=== PATIENT | male | born 1925 | race Caucasian/White ===

== ENCOUNTER 2016-09-01 07:57 | Outpatient (CLI) | payer MEDICARE, BC, OTHER | END 2016-09-01 07:58 | disposition home or self-care (01) | DX: E78.2 Mixed hyperlipidemia (principal); Z79.899 Other long term (current) drug therapy ==

== ENCOUNTER 2016-09-22 10:25 | Outpatient (CLI) | payer MEDICARE, BC, OTHER | END 2016-09-22 10:26 | disposition home or self-care (01) | DX: R41.2 Retrograde amnesia (principal) ==

== ENCOUNTER 2016-09-29 07:38 | Outpatient (CLI) | payer MEDICARE, BC, OTHER ==
[2016-09-29] MEDS ORDERED: GADOBUTROL 7.5 MMOL/7.5 ML VIAL IVP ONE (08:38)
== END 2016-09-29 07:39 | disposition home or self-care (01) ==
DX: R41.2 Retrograde amnesia (principal)
CPT/HCPCS: 70553; A9585

== ENCOUNTER 2017-01-16 10:04 | Emergency (ER) | payer MEDICARE, BC, OTHER ==
[2017-01-16 10:15] VITALS: BP 150/70
--- NOTE | 2017-01-16 10:54 | ED Physician Documentation ---
History of Present Illness - Stated complaint Stated Complaint: S/P R HAND ASPIRATION SWELLING - Chief complaint Chief Complaint: Ext Problem - History obtained from History obtained from: Patient, Family - History of Present Illness Timing: Yesterday - Additonal information Additional information: 89-year-old male had a procedure on the back of his hand to evaluate a lump over the top of his hand. Apparently a small amount of white substance was evacuated with a needle from the dorsum of the hand from a mass that was firm. 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 Since that time yesterday patient developed redness to the dorsum of the hand with swelling up to the midportion of the forearm. He awoke this morning with some improvement in this swelling and redness. Review of Systems Constitutional: denies: Fever, Chills Eyes: denies: Decreased vision Ears: denies: Ear pain Nose: denies: Congestion Respiratory: denies: Cough GI: denies: Vomiting : denies: Dysuria Skin: reports: Rash Musculoskeletal: reports: Extremity pain. denies: Neck pain, Back pain PD PAST MEDICAL HISTORY - Past Medical History Cardiovascular: Hypertension, High cholesterol Respiratory: COPD, Pneumonia Neuro: TIA Endocrine/Autoimmune: None GI: None : None HEENT: None Psych: None Musculoskeletal: Osteoarthritis Derm: Other - Past Surgical History Past Surgical History: Yes Ortho: Knee replacement, Rotator cuff repair HEENT: Cataracts Derm: Skin cancer surgery - Present Medications Home Medications: Ambulatory Orders Medication Instructions Recorded Confirmed Aspirin [Aspir 81] 81 mg PO DAILY 02/26/13 01/16/17 Clopidogrel [Plavix] 75 mg PO DAILY 02/26/13 01/16/17 Pravastatin Sodium [Pravachol] 40 mg PO HS 02/26/13 01/16/17 Fluticasone/Salmeterol 500/50 1 puffs IH BID 05/26/14 01/16/17 [Advair 500 Mcg/50 Mcg] Tiotropium [place] [Spiriva] 1 puffs IH DAILY 05/26/14 01/16/17 Azithromycin 500 mg PO ONCE 09/04/14 01/16/17 Calcium Carbonate [Coral Calcium] 390 mg PO BID 09/04/14 01/16/17 Calcium Carbonate/Vitamin D3 1 tab PO DAILY 09/04/14 01/16/17 [Caltrate 600 + D Tablet] Docusate Calcium [Stool Softener] 240 mg PO DAILY 09/04/14 01/16/17 Grape Seed Extract [Grape Seed] 60 mg PO BID 09/04/14 01/16/17 Krill Oil/[place]-3/Dha/Epa [[place]-3 1 each PO DAILY 09/04/14 01/16/17 Krill Oil Softgel] Multivitamin [Multivitamins] 1 each PO DAILY 09/04/14 01/16/17 Rifampin 600 mg PO ONCE 09/04/14 01/16/17 Vit A/Vit C/Vit E/Zinc/Copper 2 tab PO BID 09/04/14 01/16/17 [Preservision Areds Tablet] diltiaZEM CD [Cardizem Cd] 240 mg PO DAILY 09/04/14 01/16/17 Cephalexin [Keflex] 500 mg PO QID #20 capsule 01/16/17 - Allergies Allergies/Adverse Reactions: Allergies Allergy/AdvReac Type Severity Reaction Status Date / Time No Known Drug Allergies Allergy Verified 07/11/16 08:45 - Social History Does the pt smoke?: No Smoking Status: Former smoker Does the pt drink ETOH?: Yes Does the pt have substance abuse?: No - Immunizations Immunizations are current?: Yes Immunizations: TDAP current <10years - POLST Patient has POLST: No PD ED PE NORMAL - Vitals Vital signs reviewed: Yes (Hypertension) - General General: Alert and oriented X 3, No acute distress, Well developed/nourished - HEENT HEENT: Atraumatic, PERRL - Neck Neck: Supple, no meningeal sign - Respiratory Respiratory: No respiratory distress - Derm Derm: Normal color, Warm and dry - Extremities Extremities: No deformity, Other (There is swelling and erythema over the dorsum of the right hand extending from the distal metacarpals to the mid forearm. There is no drainage from the area no palpable mass and no specific pain. The patient reports the swelling and redness is improved from the day previously.) - Neuro Neuro: Alert and oriented X 3, No motor deficit, No sensory deficit - Psych Psych: Normal mood, Normal affect Results - Vitals Vitals: Vital Signs - 24 hr 01/16/17 10:13 Temperature 36.1 C L Heart Rate 52 L Respiratory 16 Rate Blood Pressure 150/70 H O2 Saturation 98 Oxygen O2 Source [With Activity] Room air O2 Source [Without Activity] Room air O2 Source Room air PD MEDICAL DECISION MAKING - ED course Complexity details: reviewed results, re-evaluated patient, considered differential, d/w patient, d/w family, d/w travel sales consultant ED course: 89-year-old male with a recent needle procedure to the dorsum of the hand appears to have developed some superficial erythema and swelling consistent with cellulitis and this appears to be spontaneously resolving. Dr. Villafuerte did come into the emergency department and evaluate the patient and recommends administration of Keflex to begin this evening if the patient does not have continued improvement the erythema is marked with a surgical marker. The patient is on a azithromycin and rifampin for MAC. Departure - Departure Disposition: 01 Home, Self Care Clinical Impression: Cellulitis Qualifiers: Site of cellulitis: extremity Site of cellulitis of extremity: upper extremity Laterality: right Qualified Code(s): L03.113 - Cellulitis of right upper limb Condition: Stable Instructions: ED Infec Skin Cellulitis Follow-Up: Adarsh Alvarez MD [Primary Care Provider] - [facility] [Provider Group] Prescriptions: Cephalexin [Keflex] 500 mg PO QID #20 capsule
--- NOTE | 2017-01-16 11:20 | CONSULTATION NOTE ---
Surgery Consult - Consult Date Consult Date: 01/16/17 Requesting Provider: Fly Calderon - Home Meds/Allergies Home Medications: Patient History Medication Instructions Recorded Confirmed Aspirin [Aspir 81] 81 mg PO DAILY 02/26/13 01/16/17 Clopidogrel [Plavix] 75 mg PO DAILY 02/26/13 01/16/17 Pravastatin Sodium [Pravachol] 40 mg PO HS 02/26/13 01/16/17 Fluticasone/Salmeterol 500/50 1 puffs IH BID 05/26/14 01/16/17 [Advair 500 Mcg/50 Mcg] Tiotropium [place] [Spiriva] 1 puffs IH DAILY 05/26/14 01/16/17 Azithromycin 500 mg PO ONCE 09/04/14 01/16/17 Calcium Carbonate [Coral Calcium] 390 mg PO BID 09/04/14 01/16/17 Calcium Carbonate/Vitamin D3 1 tab PO DAILY 09/04/14 01/16/17 [Caltrate 600 + D Tablet] Docusate Calcium [Stool Softener] 240 mg PO DAILY 09/04/14 01/16/17 Grape Seed Extract [Grape Seed] 60 mg PO BID 09/04/14 01/16/17 Krill Oil/[place]-3/Dha/Epa [[place]-3 1 each PO DAILY 09/04/14 01/16/17 Krill Oil Softgel] Multivitamin [Multivitamins] 1 each PO DAILY 09/04/14 01/16/17 Rifampin 600 mg PO ONCE 09/04/14 01/16/17 Vit A/Vit C/Vit E/Zinc/Copper 2 tab PO BID 09/04/14 01/16/17 [Preservision Areds Tablet] diltiaZEM CD [Cardizem Cd] 240 mg PO DAILY 09/04/14 01/16/17 Allergies/Adverse Reactions: Allergies Allergy/AdvReac Type Severity Reaction Status Date / Time No Known Drug Allergies Allergy Verified 07/11/16 08:45 - Consultation Note Consultation Note: Chief Complaint: Right hand swelling HPI: Mr Awad is a 89 yo M with 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 He had a fluid collection over his dorsal carpus for 6 weeks and was evaluated by Dr Smith in Ortho clinic. The mass was aspirated in clinic and the patient was informed that it has the presumptive appearance of goat. The aspiration was sent to lab. In the 2 days that followed he had increased swelling, tightness and redness in his dorsal hand extending from his mid- forearm to his dorsal MCP joints. He maintained pain-free motion of the hand, denies fevers/chills or increasing pain. He notes the swelling and redness have generally improved since yesterday. He has not tried compression but has tried some ice. He is on no pain meds. ROS: negative for chest pain, shortness of breath, weight change, lumps or bumps in any other location (small soft nodule on forehead, chronic for >10 yrs no size change), no nausea, vomiting, rash, or joint pain PMH: MAC COPD HTN HLD Hx Melenoma on left forearm, surgical resection, proximal lymph node disection, interferon treatment (12 yrs ago no known recurrence) FH: Significant for mother of melenoma SH quit smoking 40 yrs ago no ETOH Physical Exam: Gen: Well appearing, alert and oriented, NAD RUE: dorsal swelling over the carpus at the mid hand carpal metacarpal joints, pain-free to palpation in this site. Erythema extends from mid forearm dorsally to the dorsal MCP joints without palmar involvement, normal motion in wrist, hand, forearm. Marked out and time/dated erythematous area. Sensation intact to LT med/rad/uln nerves, palpable radial pulse, 5/5 strength WE/WF/hand intrinsics/EPL A/P: 89 yo M with history of melenoma on left arm now with 3 days dorsal swelling and erythema after dorsal wrist aspiration. His symptoms have improved over the last day and he remains afebrile and pain-free. We discussed that the local reaction could have been secondary to the aspiration of irritants if gout is present. It may also be a mild cellulitis. - wrapped hand and wrist with STEPHANIE wrap, educated patient in ROM exercises for hand to improve edema - provided 5 day course keflex - marked out area of erythema, if not significantly improved then start Antibiotic course. if improving this evening hold starting antibiotics - return to ER if significant increased redness extending outside of marked area , increasing pain, fevers and chills - Plan for patient to F/U with Dr. Smith next week in Ortho Clinic to discuss aspiration lab results and evaluate improvement
== END 2017-01-16 11:02 | disposition home or self-care (01) ==
LOC: ED 10:04
DX: L03.113 Cellulitis of right upper limb (principal); I10 Essential (primary) hypertension; Z79.82 Long term (current) use of aspirin; Z96.659 Presence of unspecified artificial knee joint; Z87.891 Personal history of nicotine dependence
CPT/HCPCS: 99283